=== PATIENT | female | born 1955 | race Caucasian/White ===

== ENCOUNTER 2018-03-18 08:33 | Inpatient (IN) | payer OTHER ==
[2018-03-18] MEDS ORDERED: BACITRACIN ZINC 14.2 GM OINTTUBE TP ONE (08:40)
[2018-03-18] MEDS ORDERED: MANNITOL 20% 100 GM/500 ML BAG IV ONE (08:40)
[2018-03-18] MEDS ORDERED: LIDOCAINE/EPINEPHRINE 0.5% 50 ML MDV ONE (08:40)
[2018-03-18] MEDS ORDERED: THROMBIN (BOVINE) 5,000 UNIT VIAL TP ONE (08:40)
[2018-03-18] MEDS ORDERED: SURGIFLO MATRIX KIT WITH THROMBIN 8 ML TP ONE (08:40)
[2018-03-18] MEDS ORDERED: LIDO/EPI 1% **for epidural** 30 ML SDV ONE (08:41)
[2018-03-18] MEDS ORDERED: LIDOCAINE 1% 2 ML INJ ID PRN (08:42)
[2018-03-18] MEDS ORDERED: LR 1,000 ML IV ONE (08:42)
[2018-03-18 09:54] LABS: INR 0.94 (0.83-1.16); PROTIME(PATIENT) 12.8 SEC (12.0-15.0)
[2018-03-18] MEDS ORDERED: IOPAMIDOL (ISOVUE-300) 100 ML BTL ONE (10:19)
[2018-03-18] MEDS ORDERED: MIDAZOLAM 2 MG/2 ML VIAL IVP ONE (10:26)
--- NOTE | 2018-03-18 10:31 | PDANEPAE ---
ANE History of Present Illness Craniotomy for tumor ANE Past Medical History - Cardiovascular History Hx Hypertension: Yes Hx Arrhythmias: No Hx Chest Pain: No Hx Coronary Artery / Peripheral Vascular Disease: No Hx CHF / Valvular Disease: No Hx Palpitations: No Cardiovascular History Comment: pcp monitors bp medications. + antiphospholipid syndrome - Pulmonary History Hx COPD: No Hx Asthma/Reactive Airway Disease: No Hx Recent Upper Respiratory Infection: No Hx Oxygen in Use at Home: No Hx Sleep Apnea: No Sleep Apnea Screening Result - Last Documented: Negative Pulmonary History Comment: + smoker - Neurologic History Hx Cerebrovascular Accident: Yes Hx Seizures: No Hx Dementia: No Neurologic History Comment: cva 2009. headaches - Endocrine History Hx Diabetes: No Hypothyroid: No Hyperthyroid: No Obesity: no - Renal History Hx Renal Disorders: No - Liver History Hx Hepatic Disorders: No - Neurological & Psychiatric Hx Hx Neurological and Psychiatric Disorders: No - Cancer History Hx Cancer: No - Congenital Disorder History Hx Congenital Disorders: No - GI History GERD: no Hx Gastrointestinal Disorders: No - Other Health History Other Health History: dental implants. right AKA d/t osteomyelitis - Chronic Pain History Chronic Pain: Yes (headaches, left knee pain) - Surgical History Prior Surgeries: left NIKITA. left hip revision. right AKA. hysterectomy. appy. left knee scopes. tonsillectomy ANE Review of Systems Review of Systems: - Exercise capacity Exercise capacity: limited by disability METS (RN): 4 METS ANE Patient History - Allergies Allergies/Adverse Reactions: tobramycin Allergy (Verified 03/12/18 12:12) Rash - Home Medications Home Medications: Aspirin EC [Aspirin EC 81 mg (*)] 81 mg PO DAILY 03/07/18 [Last Taken 03/09/18] Atorvastatin Calcium [Lipitor 10 mg (*)] 10 mg PO DAILY 03/07/18 [Last Taken ] Enoxaparin [Lovenox 60 MG (*)] 60 mg SQ DAILY 03/07/18 [Last Taken 03/17/18] Folic Acid [Folic Acid 1 MG (*)] 1 mg PO DAILY 03/07/18 [Last Taken 03/17/18] Hydrochlorothiazide [HCTZ (*)] 12.5 mg PO DAILY 03/07/18 [Last Taken 03/17/18] Potassium Cl [Klor-Con] 10 meq PO DAILY 03/07/18 [Last Taken 03/17/18] Warfarin Sodium [Coumadin 4MG (*)] 4.5 mg PO DAILY16 03/07/18 [Last Taken ] Zolpidem Tartrate [Ambien 5MG (*)] 5 mg PO HS 03/07/18 [Last Taken 03/17/18] celeCOXIB [CeleBREX] 100 mg PO DAILY 03/07/18 [Last Taken 03/09/18] - NPO status NPO Since - Liquids (Date): 03/17/18 NPO Since - Liquids (Time): 21:00 NPO Since - Solids (Date): 03/17/18 NPO Since - Solids (Time): 16:30 - Anes Hx Anes Hx: no prior problems - Smoking Hx Smoking Status: Heavy smoker - Family Anes Hx Family Hx Anesthesia Complications: none ANE Labs/Vital Signs - Vital Signs Blood Pressure: 137/84 Heart Rate: 100 Respiratory Rate: 16 O2 Sat (%): 92 Height: 168.91 cm Weight: 63.957 kg ANE Physical Exam - Airway Neck exam: FROM Mallampati Score: Class 2 Mouth exam: normal dental/mouth exam (dental implants) - Pulmonary Pulmonary: no respiratory distress - Cardiovascular Cardiovascular: regular rate and rhythym - ASA Status ASA Status: II ANE Anesthesia Plan Anesthesia Plan: general endotracheal anesthesia Lines/Monitors: arterial line (Plan for GETA with a-line. Discussed possible central line. Discussed possibility of remaining intubated post op if necessary.)
[2018-03-18] MEDS ORDERED: fentaNYL 250 MCG/5 ML INJ ONE (11:08)
[2018-03-18] MEDS ORDERED: PROPOFOL 200 MG/20 ML VIAL ONE (11:09)
[2018-03-18] MEDS ORDERED: LIDOCAINE 2% 5 ML SDV ONE (11:11)
[2018-03-18] MEDS ORDERED: DEXAMETHASONE 4 MG/ML VIAL ONE ×2 (11:12)
[2018-03-18] MEDS ORDERED: ROCURONIUM 50 MG/5 ML VIAL ONE ×2 (11:12→12:38)
[2018-03-18] MEDS ORDERED: ONDANSETRON 4 MG/2 ML VIAL ONE (11:12)
[2018-03-18] MEDS ORDERED: ceFAZolin 2 GM/DEXTROSE 100 ML IV ONE (11:14)
[2018-03-18] MEDS ORDERED: levETIRAcetam 1000MG/NACL 100 ML IV ONE (11:15)
--- NOTE | 2018-03-18 11:16 | PDHPUP ---
History & Physical Update H&P update statement: This history and physical update is based on an assessment of the patient which was completed after admission or registration (within 24 hours), but prior to the surgery/procedure. H&P update: H&P reviewed & patient examined, no change in patient's condition since H&P completed
[2018-03-18] MEDS ORDERED: ceFAZolin 1 GM VIAL ONE ×2 (11:18)
[2018-03-18] MEDS ORDERED: CHLORHEXIDINE GLUC HIBICLENS 118 ML BTL TP ONE (12:20)
[2018-03-18] MEDS ORDERED: ePHEDrine SULFATE 25 MG/5 ML SYR ONE (12:29)
[2018-03-18] MEDS ORDERED: METOPROLOL TARTRATE 5 MG/5 ML INJ ONE (13:20)
[2018-03-18] MEDS ORDERED: fentaNYL 100 MCG/2 ML INJ ONE ×2 (13:22→14:16)
[2018-03-18] MEDS ORDERED: ESMOLOL HCL 100 MG/10 ML VIAL IV ONE (13:23)
[2018-03-18] MEDS ORDERED: hydrALAZINE 20 MG/ML VIAL ONE (13:46)
[2018-03-18] MEDS ORDERED: GENTAMICIN SULFATE 80 MG/2 ML VIAL ONE (13:57)
[2018-03-18] MEDS ORDERED: SUGAMMADEX SODIUM 200 MG/2 ML VIAL IVP ONE (13:59)
--- NOTE | 2018-03-18 14:13 | POSTOPPROG ---
Post Op Note Date of Operation: 03/18/18 Surgeon: Leroy Cervantes Tag And Label Cutter: Wesley Garcia PA-C Anesthesia: GET(General Endotracheal) Pre-op Diagnosis: colloid cyst Post-op Diagnosis: same Indication: severe HAs Procedure: right frontal edgard hole for endscopic resection of colloid cyst Findings: cyst fenestrated and capsule removed, third ventricle visualized Inf/Abcess present in the surg proc area at time of surgery?: No Depth: Organ Space EBL: 50-100 Total fluids administered: per anesthesia Complications: none Drains: Other (EVD open at 0)
[2018-03-18] MEDS ORDERED: LACTULOSE 20 GM/30 ML UDCUP PO PRN (14:51)
[2018-03-18] MEDS ORDERED: ONDANSETRON DISINTEGRATING 4 MG TAB PO PRN (14:51)
[2018-03-18] MEDS ORDERED: MAGNESIUM HYDROXIDE 30 ML UDCUP PO PRN (14:51)
[2018-03-18] MEDS ORDERED: niCARdipine/NACL 200 ML IV PRN (14:51)
[2018-03-18] MEDS ORDERED: POLYETHYLENE GLYCOL 3350 17 GM PKT PO PRN (14:51)
[2018-03-18] MEDS ORDERED: BISACODYL 10 MG SUPP PR PRN (14:51)
[2018-03-18] MEDS ORDERED: diphenhydrAMINE 25 MG CAP PO PRN (14:51)
--- NOTE | 2018-03-18 15:41 | NEUSURGPN ---
Date of Surgery: 03/18/18 Post Op Day: 0 Assessment/Plan: 62F s/p edgard hole and endoscopic removal of colloid cyst. Pt with some post operative Intracranial bleeding in her right frontal lobe and brainstem and left sided UE weakness and facial droop. ADAT optimize pain management elder out likley in am, tonight if ready to get up and ambulate SBP 100-140 Keppra 750 BID EVD open at 5mmHg Repeat CTH in am PT/OT/SENIOR BUSINESS PROCESS ANALYST follow exam Call NS with any changes/concerns DW Dr. Cervantes Subjective: groggy post anesthesia, no complaint of pain. Objective: opens eyes to voice PEARLA follows commands left sided facial droop RUE full strength, RLE above knee amputee, LLE full strength, RUE plegic SILT incision CDI Ventric open at 5mmHg Urinary Catheter in Place: Yes Urinary Catheter Indication: Other (Use Comment) (out POD#1) - Physician Discussed Patient with Dr.: Cervantes Neurosurgery Physical Exam - Vitals, I&O, Labs I and O 03/17/18 03/18/18 03/19/18 05:59 05:59 05:59 Output Total 9 Balance -9 Weight 63.957 kg Output: CSF Drainage Amount 9 Ventriculostomy 1 9 Vital Signs Temp Pulse Resp BP Pulse Ox 36.6 C 86 19 112/51 L 95 03/18/18 14:48 03/18/18 15:34 03/18/18 15:34 03/18/18 15:34 03/18/18 15:34 ICD10 Worksheet Patient Problems: Problems Problem Status Onset Colloid cyst of third ventricle Acute - ICD10 Problem Qualifiers (1) Colloid cyst of third ventricle
--- NOTE | 2018-03-18 15:57 | PDMN ---
Medical Necessity Medical necessity: [facility] IP only surgery; CPT 60779 craniotomy
[2018-03-18] MEDS: NS W/ 20 KCl/L 1,000 ML IV SCH (16:18)
--- NOTE | 2018-03-18 16:31 | POSTANESTH ---
Post Anesthetic Evaluation Cardiovascular Status: Normal, Stable Respiratory Status: Normal, Stable Level of Consciousness/Mental Status: Can Participate in Eval, Mildly Sleepy, Arousable Pain Control: Adequate, Prn Tx Ordered Nausea/Vomiting Control: Adequate, Prn Tx Ordered Complications Possibly Related to Anesthesia: None Noted
[2018-03-18] MEDS: HYDROCODONE/APAP 10/325 TAB PO PRN (19:14)
[2018-03-18] MEDS: SENNOSIDES/DOCUSATE SODIUM TAB PO SCH (19:54)
[2018-03-18] MEDS: levETIRAcetam 250 MG TAB PO SCH (19:54)
[2018-03-19] MEDS: NS W/ 20 KCl/L 1,000 ML IV SCH ×3 (04:04→21:05)
--- NOTE | 2018-03-19 07:03 | NEUSURGPN ---
Date of Surgery: 03/18/18 Post Op Day: 1 Assessment/Plan: Assessment: 62 yo F s/p edgard hole and endoscopic removal of colloid cyst. Pt has some post operative Intracranial bleeding in her right frontal lobe and brainstem Plan: -s/p colloid cyst removal with post op blood that is slightly larger than post op CT -optimize pain management -elder out this am. Encourage ambulation -SBP 100-140 -Keppra 750 BID -EVD open at 5mmHg -repeat CTH this am showed slight increase in blood-exam good-will follow exam at this time -continue with neuro checks -PT/OT/BANDER AND CELLOPHANER MACHINE -call NS with any changes/concerns -DW and seen by Dr. Cervantes this am Subjective: No new complaints or concerns per RN/Pt. Pt with resolved weakness. Pt complains of GENTILE. No neck/chest/abd or gu complaints. No f/c/n/v/d. Objective: AAO x 3, PERRLA EOMI no droop CN 2-12 grossly intact +lt touch follows commands 5/5 BUE/BLE = incision CDI Ventric open at 5mmHg Neuro Check Frequency: per routine Urinary Catheter in Place: Yes Urinary Catheter Indication: Other (Use Comment) (to be removed this am) Catheter Insertion Date: 03/18/18 - Physician Discussed Patient with : Billy Patient Seen by : Billy Neurosurgery Physical Exam - Vitals, I&O, Labs I and O 03/18/18 03/19/18 03/20/18 05:59 05:59 05:59 Intake Total 529 Output Total 2270 Balance -1741 Weight 64.1 kg Intake: Oral (ml) 100 IV Infused (ml) 429 NS W/ 20 KCl/L 1,000 ml @ 429 100 mls/hr IV CONT FRANCINE Rx#:[id number] Output: Urine (ml) 2200 Catheter 2200 CSF Drainage Amount 70 Ventriculostomy 1 70 Vital Signs Temp Pulse Resp BP Pulse Ox 36.9 C 74 18 102/46 L 95 03/19/18 06:00 03/19/18 06:00 03/19/18 06:00 03/19/18 06:00 03/19/18 06:00 Laboratory Results 03/18/18 20:51 ICD10 Worksheet Patient Problems: Problems Problem Status Onset Colloid cyst of third ventricle Acute
[2018-03-19] MEDS: HYDROCODONE/APAP 10/325 TAB PO PRN ×2 (08:07→08:42)
[2018-03-19] MEDS: POTASSIUM CL 10 MEQ TAB PO SCH ×2 (08:44→10:16)
[2018-03-19] MEDS: SENNOSIDES/DOCUSATE SODIUM TAB PO SCH ×2 (08:44→19:12)
[2018-03-19] MEDS: FOLIC ACID 1 MG TAB PO SCH (08:44)
[2018-03-19] MEDS: ATORVASTATIN CALCIUM 10 MG TAB PO SCH (08:44)
[2018-03-19] MEDS: HYDROCHLOROTHIAZIDE 12.5 MG CAP PO SCH (08:44)
[2018-03-19] MEDS: levETIRAcetam 250 MG TAB PO SCH ×2 (08:44→19:11)
[2018-03-19] MEDS ORDERED: NS 500 ML IV ONE (09:30)
[2018-03-19] MEDS ORDERED: ALBUMIN 5% 500 ML BOTTLE IV ONE (09:45)
[2018-03-19] MEDS ORDERED: ALBUMIN 5% 500 ML IV ONE ×2 (10:00→11:02)
--- NOTE | 2018-03-19 11:29 | ASMTCASEMG ---
Living Arrangements What is your living Answers: Alone arrangement? Who do you live with? Type Of Residence What kind of residence do Answers: House you live in? Discharge Plan Comments Coordination Status Comments Notes: Patient is a 62yo female who was admitted for endoscopic removal of colloid cyst. Patient has some post operative intracranial bleeding in her right frontal lobe and brainstem. PT/OT/ENGINEERING EXECUTIVE have been ordered. Matrix Bath Attendant recommending inpatient rehab. Awaiting therapies evaluations.D/C plan TBD. CM will follow. Date Signed: 03/19/2018 11:28 AM Electronically Signed By:Tammy Barrow LCSW
[2018-03-19] MEDS ORDERED: ALTEPLASE 2 MG VIAL IVP PRN ×2 (14:16→14:39)
--- NOTE | 2018-03-19 15:17 | GCON ---
CRITICAL CARE CONSULTATION DATE OF CONSULTATION: 03/19/2018 REASON FOR CONSULTATION: Intensive care unit evaluation and medical management following endoscopic resection of a colloid cyst. HISTORY: The patient is a 62-year-old with several underlying medical problems as described below. She presented to Neurosurgery, Dr. Cervantes, with increasing headaches. They were associated with some lightheadedness, dizziness, and episodes of fainting. CT scan of the head showed a colloid cyst pre sent in the area of the foramina of Araceli in the anterior 3rd ventricle. Secondary to increasing hea daches, she was admitted for elective resection of the colloid cyst. This was done yesterday by Dr. Cervantes. A right frontal edgard hole was placed and endoscopic resection was accomplished. She was ret urned to the intensive care unit for postoperative monitoring. She has been stable since surgery. H owever, repeat CT scan of the head today showed some increased postop blood in the right periventricu lar area extending somewhat into the right temporal lobe. A catheter remains in place. Neurological ly she is intact. She does still complain of headache. She is somnolent, presumably secondary to na rcotics. She is on Keppra. EVD is open at 5 mmHg. Postoperatively, blood pressure has been low, with mean arterial pressures in the 50s. She did not r espond to increased IV fluids or to 1 L of albumin. She states that her blood pressure generally run s in the low 100s. PAST MEDICAL HISTORY: Remarkable for antiphospholipid syndrome. She has been anticoagulated with Co umadin, heparin bridge was used prior to surgery. There is a history of a right AKA secondary to ost eomyelitis and a previous CVA. She smokes cigarettes. MEDICATIONS ON ADMISSION: Coumadin, which was being held, Ambien 5 mg at h.s., aspirin 81 mg per day , potassium and hydrochlorothiazide, Celebrex, atorvastatin, and folic acid. DRUG ALLERGIES: Tobramycin. SOCIAL HISTORY: Positive for tobacco. Significant alcohol is negative by report. FAMILY HISTORY: Noncontributory. REVIEW OF SYSTEMS: A 10-point review of systems is negative, except as noted above. PHYSICAL EXAMINATION: GENERAL: Reveals a somnolent patient who is arousable and appropriately respo nsive. VITAL SIGNS: Current blood pressure on low-dose dopamine is 105/50 with a mean arterial pres sure of 62. Heart rate is 70, with sinus rhythm on the monitor. Respiratory rate is 16. On 2 L sat urations are 97%. ICP is 7, CPP approximately 50. HEENT: Remarkable for the postoperative changes. Mucous membranes are somewhat dry. Nasal cannula oxygen is in place. There is no lymphadenopathy or thyromegaly, no jugular venous distention. CHEST: Clear bilaterally, with diminished breath soun ds at the bases. HEART: Bradycardic. A soft systolic murmur is noted. There are no gallops. ABDO MEN: Soft and nontender. Bowel sounds are present but diminished. EXTREMITIES: There is a right A KA. There is no edema on the left. NEUROLOGIC: Nonfocal, within normal limits. : A Vance tavon ter has been removed. DATABASE: CT scans are as outlined above. Preop H and H were 12 and 36. ASSESSMENT: 1. Status post endoscopic resection of a colloid cyst with some associated bleeding. 2. Hypotension. Blood pressure remains low despite fluids. This may in part be secondary to narcot ic pain control for headache. Dopamine has been added with increased pressures and a MAP between 16 and 65. A PICC line will be requested. 3. History of antiphospholipid syndrome and anticoagulation. Currently off anticoagulation. Restar ting once acceptable with Neurosurgery. 4. History of [id number] amputation secondary to osteomyelitis. PLAN/RECOMMENDATIONS: Dopamine will be continued for now to keep MAP above 60-65. A PICC line will be requested. Chemistries and CBC will be obtained in the a.m. Neurologic status will be followed. Repeat CT scans of the head, if any, per Neurosurgery. Intravenous fluids will be continued. Further plans and recommendations will be made based on her progress over the next 12-24 hours. /[id number]/MODL
[2018-03-19] MEDS ORDERED: ONDANSETRON 4 MG/2 ML VIAL ONE (15:28)
[2018-03-19] MEDS ORDERED: ONDANSETRON 4 MG/2 ML VIAL IVP PRN (16:18)
[2018-03-19] MEDS ORDERED: ACETAMINOPHEN 500 MG TAB PO PRN (18:46)
[2018-03-19] MEDS: ACETAMINOPHEN 500 MG TAB PO PRN (19:11)
[2018-03-20] MEDS: HYDROCODONE/APAP 10/325 TAB PO PRN ×3 (01:40→18:14)
[2018-03-20] MEDS: NS W/ 20 KCl/L 1,000 ML IV SCH ×4 (04:16→23:08)
[2018-03-20 04:34] LABS: PLATELET COUNT 156 10^3/uL (150-400)
--- NOTE | 2018-03-20 07:03 | NEUSURGPN ---
Assessment/Plan: Assessment: 62 yo F s/p edgard hole and endoscopic removal of colloid cyst. Pt had some post operative Intracranial bleeding in her right frontal lobe and brainstem Plan: -s/p colloid cyst removal with post op blood that is slightly larger than post op CT -optimize pain management -Encourage ambulation -SBP 100-140 -Keppra 750 BID -EVD open at 5mmHg -repeat CTH 03/19 showed slight increase in blood-exam good-will follow exam at this time -continue with neuro checks -PT/OT/MANAGER MEDICAL -call NS with any changes/concerns -DW Dr. Cervantes Subjective: mild headache and nausea. Denies any change in vision. Objective: Subjective: AAO x 3, PERRLA EOMI no droop CN 2-12 grossly intact +lt touch follows commands 5/5 BUE/BLE = incision CDI ICP 7-8 this am CSF clear to blood tinged Ventric open at 5mmHg Catheter Insertion Date: 03/18/18 - Physician Discussed Patient with Dr.: Cervantes Neurosurgery Physical Exam - Vitals, I&O, Labs I and O 03/19/18 03/20/18 03/21/18 05:59 05:59 05:59 Intake Total 529 4684.3 Output Total 2270 2635 Balance -1741 2049.3 Weight 64.1 kg Intake: Oral (ml) 100 950 IV Infused (ml) 429 3734.3 Albumin 5% 500 ml @ As 1000 Directed IV ONCE ONE Rx#: [id number] DOPamine/DEXTROSE 250 ml 214.3 @ Titrate IV CONT FRANCINE Rx# :[id number] NS W/ 20 KCl/L 1,000 ml @ 429 2520 150 mls/hr IV CONT FRANCINE Rx#:[id number] Output: Urine (ml) 2200 2500 Bedside Commode 2150 Catheter 2200 350 Emesis (ml) 25 CSF Drainage Amount 70 110 Ventriculostomy 1 70 110 Other: Number of Emesis 1 Occurrences Vital Signs Temp Pulse Resp BP Pulse Ox 36.7 C 49 L 13 114/43 L 97 03/20/18 04:00 03/20/18 05:59 03/20/18 05:59 03/20/18 05:59 03/20/18 05:59 Laboratory Results 03/20/18 04:25 03/20/18 04:25 ICD10 Worksheet Patient Problems: Problems Problem Status Onset Colloid cyst of third ventricle Acute
[2018-03-20] MEDS: POTASSIUM CL 10 MEQ TAB PO SCH (08:59)
[2018-03-20] MEDS: ATORVASTATIN CALCIUM 10 MG TAB PO SCH (08:59)
[2018-03-20] MEDS: levETIRAcetam 250 MG TAB PO SCH ×2 (08:59→20:20)
[2018-03-20] MEDS: SENNOSIDES/DOCUSATE SODIUM TAB PO SCH ×2 (08:59→20:20)
[2018-03-20] MEDS: FOLIC ACID 1 MG TAB PO SCH (08:59)
[2018-03-20] MEDS: HYDROCHLOROTHIAZIDE 12.5 MG CAP PO SCH (09:14)
--- NOTE | 2018-03-20 13:16 | PDINTPN ---
Capping Machine Operator Progress Note Assessment/Plan: Assessment: Status post colloid cyst removal. Associated with a small amount of postop intraparenchymal hemorrhage. Headaches improved. Ventriculostomy in place. On Keppra. Neurologic status is stable. History of anti phospholipid syndrome. History of DVT left lower extremity. On Coumadin prior to admission. Need to restart prophylactic anticoagulation as soon as possible, followed by full-dose anticoagulation once okay with surgery. Hypotension. Blood pressures borderline low. On low-dose dopamine at 5. History a right AKA secondary to osteomyelitis. Metabolic: No issues identified. Anemia: Hematocrit 33. No evidence of active bleeding. Follow. Plan: Continue care in the intensive care unit. Continue neuro checks. Continue dopamine: Wean as blood pressure tolerates.. Follow CBC and laboratory. Restart prophylactic anticoagulation as soon as possible: I will discuss this with neuro surgery. Full-dose anticoagulation later. I will get a surveillance/baseline ultrasound of her left lower extremity: I do not suspect any acute clot. 35 min of critical care time spent directly with the patient. Discussed with neuro surgery, nursing, and the ICU multi disciplinary team. Subjective: Remains somnolent. Headache is better. Denies shortness of breath. Objective: Vital Signs Temp Pulse Resp BP Pulse Ox 36.6 C 55 L 14 105/46 L 94 03/20/18 12:00 03/20/18 13:00 03/20/18 13:00 03/20/18 13:00 03/20/18 13:00 Laboratory Results 03/20/18 04:25 03/20/18 04:25 03/19/18 03/20/18 03/21/18 05:59 05:59 05:59 Intake Total 529 4684.3 180 Output Total 2270 2635 761 Balance -1741 2049.3 -581 PT 12.8 SEC (12.0-15.0) 03/18/18 09:30 INR 0.94 (0.83-1.16) 03/18/18 09:30 Physical Exam - Physical Exam General Appearance: other (Remains somnolent but improved compared to yesterday , arousable, responds.) EENT: PERRL/EOMI, other (Ventriculostomy in place. Nasal cannula.) Neck: normal inspection (No JVD) Respiratory: lungs clear, decreased breath sounds (And excursions at bases) Cardiac/Chest: bradycardia (Sinus) Abdomen: normal bowel sounds, non-tender, soft Pelvic Exam: other (No Vance catheter) Skin: normal color, warm/dry Extremities: pedal edema, other (Right AKA) Neuro/Psych: no motor/sensory deficits (Moves all extremities), No cognition abnormalities (Somnolent) ICD10 Worksheet Patient Problems: Problems Problem Status Onset Colloid cyst of third ventricle Acute
[2018-03-20] MEDS: oxyCODONE IR 5 MG TAB PO PRN (15:32)
[2018-03-21] MEDS: oxyCODONE IR 5 MG TAB PO PRN ×3 (01:35→20:02)
[2018-03-21 04:38] LABS: PLATELET COUNT 152 10^3/uL (150-400)
--- NOTE | 2018-03-21 08:40 | NEUSURGPN ---
Assessment/Plan: Assessment: 62 yo F s/p edgard hole and endoscopic removal of colloid cyst. Pt had some post operative Intracranial bleeding in her right frontal lobe and brainstem Plan: -s/p colloid cyst removal with post op blood that is slightly larger than post op CT -optimize pain management -Encourage ambulation -SBP 100-140 -Keppra 750 BID -EVD open at 15mmHg -repeat CTH 03/19 showed slight increase in blood-exam good-will follow exam at this time -continue with neuro checks -PT/OT/TRACK HOE OPERATOR -call NS with any changes/concerns -Will start heparin 8000mg bid, will need to hold 24hour prior to evd pull Subjective: Mild headache, feeling a bit more fatigued this morning Objective: AAO x 3, PERRLA EOMI no droop CN 2-12 grossly intact +lt touch follows commands 5/5 BUE/BLE = incision CDI CSF clear to blood tinged Ventric open at 10mmHg Catheter Insertion Date: 03/18/18 - Physician Discussed Patient with : John Neurosurgery Physical Exam - Vitals, I&O, Labs I and O 03/20/18 03/21/18 03/22/18 05:59 05:59 05:59 Intake Total 4684.3 5581 Output Total 2635 2620 501 Balance 2049.3 2961 -501 Intake: Oral (ml) 950 1786 IV Infused (ml) 3734.3 3795 Albumin 5% 500 ml @ As 1000 Directed IV ONCE ONE Rx#: [id number] DOPamine/DEXTROSE 250 ml 214.3 271 @ Titrate IV CONT FRANCINE Rx# :[id number] NS W/ 20 KCl/L 1,000 ml @ 2520 3524 150 mls/hr IV CONT FRANCINE Rx#:[id number] Output: Urine (ml) 2500 2600 500 Bedside Commode 2150 2600 500 Catheter 350 Emesis (ml) 25 CSF Drainage Amount 110 20 1 Ventriculostomy 1 110 20 1 Other: Number of Voids Bedside Commode 1 1 Number of Emesis 1 Occurrences Vital Signs Temp Pulse Resp BP Pulse Ox 36.5 C 61 14 114/50 L 92 03/20/18 23:58 03/21/18 06:00 03/21/18 06:00 03/21/18 06:00 03/21/18 06:00 Laboratory Results 03/21/18 04:30 03/21/18 04:30 ICD10 Worksheet Patient Problems: Problems Problem Status Onset Colloid cyst of third ventricle Acute
[2018-03-21] MEDS: levETIRAcetam 250 MG TAB PO SCH ×2 (09:41→20:02)
[2018-03-21] MEDS: ATORVASTATIN CALCIUM 10 MG TAB PO SCH (09:41)
[2018-03-21] MEDS: SENNOSIDES/DOCUSATE SODIUM TAB PO SCH ×2 (09:41→20:01)
[2018-03-21] MEDS: POTASSIUM CL 10 MEQ TAB PO SCH (09:42)
[2018-03-21] MEDS: FOLIC ACID 1 MG TAB PO SCH (09:42)
[2018-03-21] MEDS: HYDROCHLOROTHIAZIDE 12.5 MG CAP PO SCH (09:42)
[2018-03-21] MEDS ORDERED: ALBUMIN 5% 500 ML IV ONE (10:33)
[2018-03-21] MEDS: HYDROCODONE/APAP 10/325 TAB PO PRN (15:36)
--- NOTE | 2018-03-21 15:55 | PDINTPN ---
Associate Curator Progress Note Assessment/Plan: Assessment: Status post colloid cyst removal. Associated with a small amount of postop intraparenchymal hemorrhage. Headaches improved but do persist. Ventriculostomy in place. On Keppra. Neurologic status is stable. History of anti phospholipid syndrome. History of DVT left lower extremity. On Coumadin prior to admission. Prophylactic subcu heparin started. Hypotension. Blood pressures borderline low. On low-dose dopamine at 5 to 10 as needed to keep MAP 60-65. History a right AKA secondary to osteomyelitis. Metabolic: No issues identified. Anemia: Hematocrit 33, stable. No evidence of active bleeding. Follow. Plan: Continue care in the intensive care unit. Continue neuro checks. Continue dopamine: Wean as blood pressure tolerates.. Follow CBC and laboratory. Agree with initiation of prophylactic anticoagulation Full-dose anticoagulation later. 25 min of critical care time spent directly with the patient. Discussed with neuro surgery, nursing, and the ICU multi disciplinary team. Subjective: Somnolent, arousable, complains a headache but feels pain control is acceptable Objective: Vital Signs Temp Pulse Resp BP Pulse Ox 36.8 C 76 17 112/55 L 93 03/21/18 12:00 03/21/18 15:00 03/21/18 15:00 03/21/18 15:00 03/21/18 15:00 Laboratory Results 03/21/18 04:30 03/21/18 04:30 03/20/18 03/21/18 03/22/18 05:59 05:59 05:59 Intake Total 4684.3 5581 Output Total 2635 2620 861 Balance 2049.3 2961 -861 PT 12.8 SEC (12.0-15.0) 03/18/18 09:30 INR 0.94 (0.83-1.16) 03/18/18 09:30 Surveillance ultrasound right lower extremity: No clot. No significant residual abnormalities from previous DVT. Physical Exam - Physical Exam General Appearance: other (Somnolent, arouses) EENT: PERRL/EOMI, other (Nasal cannula in place at [address]) Neck: normal inspection (No JVD) Respiratory: lungs clear, decreased breath sounds (At bases), No rales, No rhonchi Cardiac/Chest: regular rate, rhythm Abdomen: normal bowel sounds, non-tender, soft Pelvic Exam: other (No Vance catheter) Skin: normal color, warm/dry Extremities: other (Right AKA), No pedal edema Neuro/Psych: no motor/sensory deficits, cognition abnormalities (Remains somnolent) ICD10 Worksheet Patient Problems: Problems Problem Status Onset Colloid cyst of third ventricle Acute
--- NOTE | 2018-03-21 16:29 | ASMTCMCOM ---
CM Note CM Note Notes: Patient was confused this AM. Her friend Loren has been at her bedside. Patient was requiring 2 person max assist today. Inpatient rehab consult was requested. D/C plan TBD.CM will follow. Date Signed: 03/21/2018 04:28 PM Electronically Signed By:Tammy Barrow LCSW
[2018-03-21] MEDS: HEPARIN 5,000 UNIT/0.5 ML INJ SC SCH (20:02)
[2018-03-21] MEDS: NS W/ 20 KCl/L 1,000 ML IV SCH (21:38)
[2018-03-22] MEDS: SENNOSIDES/DOCUSATE SODIUM TAB PO SCH ×2 (08:18→20:33)
[2018-03-22] MEDS: FOLIC ACID 1 MG TAB PO SCH (08:18)
[2018-03-22] MEDS: ATORVASTATIN CALCIUM 10 MG TAB PO SCH (08:19)
[2018-03-22] MEDS: levETIRAcetam 250 MG TAB PO SCH ×2 (08:20→20:33)
[2018-03-22] MEDS: POTASSIUM CL 10 MEQ TAB PO SCH (08:21)
[2018-03-22] MEDS: HEPARIN 5,000 UNIT/0.5 ML INJ SC SCH ×2 (08:25→20:33)
--- NOTE | 2018-03-22 08:58 | NEUSURGPN ---
Assessment/Plan: Assessment: 62 yo F s/p edgard hole and endoscopic removal of colloid cyst on . Pt had some post operative Intracranial bleeding in her right frontal lobe and brainstem Plan: -s/p colloid cyst removal with post op blood -Encourage ambulation -SBP 100-140 -Keppra 750 BID -repeat CTH decreased in overall blood volume and improved ventriculomegaly with some slight increase in shift. Reviewed with Dr. Lopez. Will increased EVD to 10mmHG -continue with neuro checks -PT/OT/IMAGER -call NS with any changes/concerns -Will start heparin 8000mg bid, will need to hold 24hour prior to evd pull Subjective: mild headache Objective: AAO x 3, PERRLA EOMI no droop CN 2-12 grossly intact +lt touch follows commands 5/5 BUE/BLE = incision CDI CSF clear Ventric open at 5mmHg, ICP 2 Catheter Insertion Date: 03/18/18 - Physician Discussed Patient with : John Neurosurgery Physical Exam - Vitals, I&O, Labs I and O 03/21/18 03/22/18 03/23/18 05:59 05:59 05:59 Intake Total 5581 5281 1000 Output Total 2620 5361 450 Balance 2961 -80 550 Intake: Oral (ml) 1786 1760 1000 IV Intake (ml) 57 IV Infused (ml) 3795 3464 Albumin 5% 500 ml @ As 500 Directed IV ONCE ONE Rx#: [id number] DOPamine/DEXTROSE 250 ml 271 152 @ Titrate IV CONT FRANCINE Rx# :[id number] NS W/ 20 KCl/L 1,000 ml @ 3524 2812 150 mls/hr IV CONT FRANCINE Rx#:[id number] Output: Urine (ml) 2600 5275 450 Bedside Commode 2600 5275 450 CSF Drainage Amount 20 86 0 Ventriculostomy 1 20 86 0 Other: Intake Quantity Yes Sufficient Number of Voids Bedside Commode 1 1 Vital Signs Temp Pulse Resp BP Pulse Ox 36.6 C 58 L 17 111/61 97 03/22/18 07:00 03/22/18 08:00 03/22/18 08:00 03/22/18 08:00 03/22/18 08:00 Laboratory Results 03/21/18 04:30 03/21/18 04:30 ICD10 Worksheet Patient Problems: Problems Problem Status Onset Colloid cyst of third ventricle Acute
[2018-03-22] MEDS: oxyCODONE IR 5 MG TAB PO PRN (10:01)
[2018-03-22] MEDS: HYDROCHLOROTHIAZIDE 12.5 MG CAP PO SCH (10:26)
--- NOTE | 2018-03-22 14:44 | ASMTCMCOM ---
CM Note CM Note Notes: Pts case discussed in tx rounds. Pt would like a referral sent to [facility] for their inpatient rehab. Pt has been in the past and had a good experience. Referral sent. CM to follow. Plan: Inpatient Rehab Date Signed: 03/22/2018 02:43 PM Electronically Signed By:ARISTIDES Martinez
[2018-03-22] MEDS: ACETAMINOPHEN 500 MG TAB PO PRN (16:15)
--- NOTE | 2018-03-22 17:15 | PDINTPN ---
Bilingual Social Worker Progress Note Assessment/Plan: Assessment: Status post colloid cyst removal. Associated with a small amount of postop intraparenchymal hemorrhage. Headaches improved but do persist. Ventriculostomy in place. On Keppra. Neurologic status is stable. Somnolence. Likely secondary to pain medications. Some increased pressures/ hydrocephalus may be contributing as well. History of anti phospholipid syndrome. History of DVT left lower extremity. On Coumadin prior to admission. Prophylactic subcu heparin started. Hypotension. Blood pressures borderline low. Was off dopamine but back on this again. History a right AKA secondary to osteomyelitis. Metabolic: No issues identified. Anemia: Hematocrit 32.7, stable. No evidence of active bleeding. Follow. Plan: Continue care in the intensive care unit. Continue neuro checks. Continue dopamine as needed: Wean again as blood pressure tolerates. Follow CBC and laboratory. Decreased narcotics as tolerated. Continue prophylactic anticoagulation Full-dose anticoagulation later. 20 min of critical care time spent directly with the patient. Discussed with neuro surgery, nursing, and the ICU multi disciplinary team. Subjective: Complains of headache, remains somnolent. Objective: Vital Signs Temp Pulse Resp BP Pulse Ox 36.9 C 67 18 100/57 L 92 03/22/18 14:00 03/22/18 17:00 03/22/18 17:00 03/22/18 17:00 03/22/18 17:00 Laboratory Results 03/21/18 04:30 03/21/18 04:30 03/21/18 03/22/18 03/23/18 05:59 05:59 05:59 Intake Total 5581 5781 1355 Output Total 2620 5361 1850 Balance 2961 420 -495 PT 12.8 SEC (12.0-15.0) 03/18/18 09:30 INR 0.94 (0.83-1.16) 03/18/18 09:[address]: About the same regarding hemorrhages. Right lateral ventricle may be slightly larger Physical Exam - Physical Exam General Appearance: other (Less somnolent) EENT: PERRL/EOMI, other (Ventriculostomy in place) Neck: normal inspection Respiratory: lungs clear, decreased breath sounds (At bases) Cardiac/Chest: regular rate, rhythm Abdomen: normal bowel sounds, non-tender, soft Pelvic Exam: other (No Vance catheter. Using toilet, good urine output) Skin: normal color, warm/dry Extremities: other (AKA), No pedal edema Neuro/Psych: no motor/sensory deficits, cognition abnormalities (Remains somnolent, but less so) ICD10 Worksheet Patient Problems: Problems Problem Status Onset Colloid cyst of third ventricle Acute
[2018-03-23] MEDS: ACETAMINOPHEN 500 MG TAB PO PRN ×3 (06:19→23:27)
[2018-03-23] MEDS: levETIRAcetam 250 MG TAB PO SCH ×2 (08:17→21:03)
[2018-03-23] MEDS: SENNOSIDES/DOCUSATE SODIUM TAB PO SCH ×2 (08:18→21:03)
[2018-03-23] MEDS: HEPARIN 5,000 UNIT/0.5 ML INJ SC SCH ×2 (08:18→21:03)
[2018-03-23] MEDS: FOLIC ACID 1 MG TAB PO SCH (08:18)
[2018-03-23] MEDS: POTASSIUM CL 10 MEQ TAB PO SCH (08:18)
[2018-03-23] MEDS: ATORVASTATIN CALCIUM 10 MG TAB PO SCH (08:18)
--- NOTE | 2018-03-23 11:52 | NEUSURGPN ---
Assessment/Plan: Assessment: 62 yo F s/p edgard hole and endoscopic removal of colloid cyst on . Pt had some post operative Intracranial bleeding in her right frontal lobe and brainstem Plan: -s/p colloid cyst removal with post op blood -Encourage ambulation -SBP 100-140 -Keppra 750 BID -repeat CTH decreased in overall blood volume and improved ventriculomegaly with some slight increase in shift. Reviewed with Dr. Lopez. Will increased EVD to 15mmHG -Avoid narcotics -continue with neuro checks -PT/OT/RESIDENTIAL ADVISOR -call NS with any changes/concerns -Will start heparin 8000mg bid, will need to hold 24hour prior to evd pull Subjective: headaches stable Objective: AAO x 3, PERRLA EOMI no droop CN 2-12 grossly intact +lt touch follows commands 5/5 BUE/BLE = incision CDI CSF clear Ventric open at 10mmHg, ICP 1 Catheter Insertion Date: 03/18/18 - Physician Discussed Patient with : John Neurosurgery Physical Exam - Vitals, I&O, Labs I and O 03/22/18 03/23/18 03/24/18 05:59 05:59 05:59 Intake Total 5781 2343.6 720 Output Total 5361 5803 650 Balance 420 -3459.4 70 Intake: Oral (ml) 2260 2105 720 IV Intake (ml) 57 IV Infused (ml) 3464 238.6 Albumin 5% 500 ml @ As 500 Directed IV ONCE ONE Rx#: [id number] DOPamine/DEXTROSE 250 ml 152 238.6 @ Titrate IV CONT FRANCINE Rx# :[id number] NS W/ 20 KCl/L 1,000 ml @ 2812 150 mls/hr IV CONT FRANCINE Rx#:[id number] Output: Urine (ml) 5275 5800 650 Bedside Commode 5275 5800 650 CSF Drainage Amount 86 3 0 Ventriculostomy 1 86 3 0 Other: Intake Quantity Yes Sufficient Number of Voids Bedside Commode 1 1 Number of Stools Bedside Commode 0 1 Vital Signs Temp Pulse Resp BP Pulse Ox 37 C 54 L 20 110/46 L 93 03/23/18 08:00 03/23/18 11:00 03/23/18 11:00 03/23/18 11:00 03/23/18 11:00 Laboratory Results 03/21/18 04:30 03/21/18 04:30 ICD10 Worksheet Patient Problems: Problems Problem Status Onset Colloid cyst of third ventricle Acute
--- NOTE | 2018-03-23 13:36 | PDINTPN ---
Diamond Die Maker Progress Note Assessment/Plan: Assessment: Status post colloid cyst removal. Associated with a small amount of postop intraparenchymal hemorrhage. Headaches improved but do persist. Ventriculostomy in place. On Keppra. Neurologic status is stable. Somnolence. Significantly improved today Likely secondary to pain medications. Some increased pressures/hydrocephalus may be contributing as well? History of anti phospholipid syndrome. History of DVT left lower extremity. On Coumadin prior to admission. On prophylactic subcu heparin. Hypotension. Blood pressures borderline low. Was off dopamine but back on this again. Getting IV fluids. History a right AKA secondary to osteomyelitis. Metabolic: No issues identified. Anemia: Last hematocrit 32.7, stable. No evidence of active bleeding. Follow. Plan: Continue care in the intensive care unit. Continue neuro checks. Continue dopamine as needed: Wean again as blood pressure tolerates. Follow CBC and laboratory intermittently. Continue off narcotics unless needed. Continue prophylactic anticoagulation. Resume full-dose anticoagulation later once okay with neuro surgery. 25 min of critical care time spent directly with the patient. Discussed with neuro surgery, nursing, and the ICU multi disciplinary team. Subjective: Much more alert, brighter today. Interactive. Walked part way down the diaz using walker with physical therapy. Objective: Vital Signs Temp Pulse Resp BP Pulse Ox 37 C 54 L 20 110/46 L 93 03/23/18 08:00 03/23/18 11:00 03/23/18 11:00 03/23/18 11:00 03/23/18 11:00 Laboratory Results 03/21/18 04:30 03/21/18 04:30 03/22/18 03/23/18 03/24/18 05:59 05:59 05:59 Intake Total 5781 2343.6 720 Output Total 5361 5803 650 Balance 420 -3459.4 70 PT 12.8 SEC (12.0-15.0) 03/18/18 09:30 INR 0.94 (0.83-1.16) 03/18/18 09:30 Physical Exam - Physical Exam General Appearance: alert, no apparent distress, other (Sitting up in bed) EENT: PERRL/EOMI, other (Off oxygen. Ventriculostomy in place.) Neck: normal inspection (No JVD) Respiratory: lungs clear, normal breath sounds, No rales, No rhonchi Cardiac/Chest: bradycardia (Sinus) Abdomen: normal bowel sounds, non-tender, soft Skin: normal color, warm/dry Extremities: other (Right AKA), No pedal edema Neuro/Psych: no motor/sensory deficits, No cognition abnormalities ICD10 Worksheet Patient Problems: Problems Problem Status Onset Colloid cyst of third ventricle Acute
[2018-03-23] MEDS: NS W/ 20 KCl/L 1,000 ML IV SCH ×2 (13:37→22:11)
[2018-03-23] MEDS: traMADol 50 MG TAB PO PRN (18:41)
[2018-03-24] MEDS: traMADol 50 MG TAB PO PRN ×3 (01:34→21:21)
[2018-03-24 04:35] LABS: PLATELET COUNT 172 10^3/uL (150-400)
[2018-03-24] MEDS: NS W/ 20 KCl/L 1,000 ML IV SCH (05:42)
[2018-03-24] MEDS: ATORVASTATIN CALCIUM 10 MG TAB PO SCH (07:39)
[2018-03-24] MEDS: HEPARIN 5,000 UNIT/0.5 ML INJ SC SCH ×2 (07:39→20:58)
[2018-03-24] MEDS: SENNOSIDES/DOCUSATE SODIUM TAB PO SCH ×2 (07:39→20:58)
[2018-03-24] MEDS: FOLIC ACID 1 MG TAB PO SCH (07:39)
[2018-03-24] MEDS: levETIRAcetam 250 MG TAB PO SCH ×2 (07:40→20:58)
[2018-03-24] MEDS: ACETAMINOPHEN 500 MG TAB PO PRN ×2 (07:40→15:19)
[2018-03-24] MEDS: POTASSIUM CL 10 MEQ TAB PO SCH (07:40)
--- NOTE | 2018-03-24 09:05 | PDINTPN ---
Life Assurance Representative Progress Note Assessment/Plan: Assessment/plan: * Status post colloid cyst removal. Associated with a small amount of postop intraparenchymal hemorrhage. Headaches improved but do persist. Ventriculostomy in place. On Keppra. Neurologic status is stable. -anticipated tube clamping tomorrow * Somnolence. Markedly improved. Awake and alert. * Hypercoagulable state/anti phospholipid syndrome. History of DVT left lower extremity. On Coumadin prior to admission. On prophylactic subcu heparin. -query when full anticoagulation can begin * Hypotension. Blood pressures borderline low. Was off dopamine but back on this again. Getting IV fluids. * History a right AKA secondary to osteomyelitis. * Metabolic: No issues identified. * Anemia: Last hematocrit 32.7, stable. No evidence of active bleeding. Follow. * VTE prophylaxis. * Stress ulcer prophylaxis * Nutrition-adequate Overall markedly improved Subjective: Sitting up in bed. Awake and alert. Only complaint is a headache. Eating well. PT and OT working with patient. Objective: Vital Signs Temp Pulse Resp BP Pulse Ox 36.8 C 61 17 108/53 L 94 03/24/18 07:55 03/24/18 07:55 03/24/18 07:55 03/24/18 07:55 03/24/18 07:55 Laboratory Results 03/24/18 04:10 03/24/18 04:10 03/23/18 03/24/18 03/25/18 05:59 05:59 05:59 Intake Total 2343.6 4555 810 Output Total 5803 3100 0 Balance -3459.4 1455 810 PT 12.8 SEC (12.0-15.0) 03/18/18 09:30 INR 0.94 (0.83-1.16) 03/18/18 09:30 - Time Spent With Patient Time Spent With Patient: 35 min of time spent with patient, over 1/2 involved with coordination of care or counseling. Case discussed with nursing Physical Exam - Physical Exam General Appearance: WD/WN, alert, no apparent distress EENT: PERRL/EOMI Neck: non-tender, full range of motion, supple, normal inspection Respiratory: chest non-tender, lungs clear, normal breath sounds Cardiac/Chest: normal peripheral pulses, regular rate, rhythm Peripheral Pulses: 2+: carotid (R), carotid (L), femoral (R), femoral (L), dorsalis-pedis (R), dorsalis-pedis (L) Abdomen: normal bowel sounds, non-tender, soft Pelvic Exam: deferred Rectal: deferred Skin: normal color, warm/dry Extremities: normal range of motion, non-tender, normal inspection, normal capillary refill Neuro/Psych: alert, oriented x 3 ICD10 Worksheet Patient Problems: Problems Problem Status Onset Colloid cyst of third ventricle Acute
--- NOTE | 2018-03-24 09:27 | NEUSURGPN ---
Assessment/Plan: Assessment: 62 yo F s/p edgard hole and endoscopic removal of colloid cyst on . Pt had some post operative Intracranial bleeding in her right frontal lobe and brainstem Plan: -Encourage ambulation -SBP 100-140 -Keppra 750 BID -repeat CTH decreased in overall blood volume and improved ventriculomegaly with some slight increase in shift, patient improving clinically Will increased EVD to 20mmHG -Plan to clamp EVD tomorrow and hold Heparin for possible removal on Sat. Will repeat HCT on Sat morning prior to remove ventriculostomy -Avoid narcotics as this has been effecting patient overall mental status. Tramadol and Tylenol available for pain. -continue with neuro checks -PT/OT/MAINTENANCE SHOP TECHNICIAN -call NS with any changes/concerns Subjective: Continued stable headache Objective: AO x 3, PERRLA EOMI CN 2-12 grossly intact +lt touch follows commands 5/5 BUE/BLE = incision CDI CSF clear Ventric open at 10mmHg, ICP 1-3 Catheter Insertion Date: 03/18/18 - Physician Discussed Patient with : Billy Neurosurgery Physical Exam - Vitals, I&O, Labs I and O 03/23/18 03/24/18 03/25/18 05:59 05:59 05:59 Intake Total 2343.6 4555 1050 Output Total 5803 3100 650 Balance -3459.4 1455 400 Weight 68.8 kg Intake: Oral (ml) 2105 2560 720 IV Infused (ml) 238.6 1995 330 DOPamine/DEXTROSE 250 ml 238.6 68 @ Titrate IV CONT FRANCINE Rx# :[id number] NS W/ 20 KCl/L 1,000 ml @ 1927 330 100 mls/hr IV CONT FRANCINE Rx#:[id number] Output: Urine (ml) 5800 3100 650 Bedside Commode 5800 3100 650 CSF Drainage Amount 3 0 0 Ventriculostomy 1 3 0 0 Other: Intake Quantity Yes Sufficient Number of Voids Bedside Commode 1 1 Number of Stools Bedside Commode 0 0 Vital Signs Temp Pulse Resp BP Pulse Ox 36.8 C 61 17 108/53 L 94 03/24/18 07:55 03/24/18 07:55 03/24/18 07:55 03/24/18 07:55 03/24/18 07:55 Laboratory Results 03/24/18 04:10 03/24/18 04:10 ICD10 Worksheet Patient Problems: Problems Problem Status Onset Colloid cyst of third ventricle Acute
--- NOTE | 2018-03-24 16:46 | ASMTCMCOM ---
CM Note CM Note Notes: Updated referral notes to [facility]. Date Signed: 03/24/2018 04:45 PM Electronically Signed By:Jackie Martinez LCSW
[2018-03-24] MEDS: NICOTINE 21 MG/24 HR PATCH TD SCH (20:55)
[2018-03-25] MEDS: ACETAMINOPHEN 500 MG TAB PO PRN ×2 (01:04→19:31)
--- NOTE | 2018-03-25 07:12 | NEUSURGPN ---
Assessment/Plan: Assessment: 62 yo F s/p edgard hole and endoscopic removal of colloid cyst on . Pt had some post operative Intracranial bleeding in her right frontal lobe and brainstem Plan: -SBP 100-140 -Keppra 750 BID -repeat CTH decreased in overall blood volume and improved ventriculomegaly with some slight increase in shift, patient improving clinically -EVD clamped and Heparin held for possible removal tomorrow Will repeat HCT tomorrow morning prior to remove ventriculostomy -Avoid narcotics as this has been effecting patient overall mental status. Tramadol and Tylenol available for pain. -continue with neuro checks -PT/OT/LAV CREWMAN -call NS with any changes/concerns Subjective: Headache improved Objective: AO x 3, PERRLA EOMI CN 2-12 grossly intact +lt touch follows commands 5/5 BUE/LLE; right LE amputation incision CDI CSF clear Ventric open at 10mmHg, ICP 1-3 Catheter Insertion Date: 03/18/18 - Physician Discussed Patient with : Billy Neurosurgery Physical Exam - Vitals, I&O, Labs I and O 03/24/18 03/25/18 03/26/18 05:59 05:59 05:59 Intake Total 4555 2370 Output Total 3100 1702 0 Balance 1455 668 0 Weight 68.8 kg Intake: Oral (ml) 2560 2040 IV Infused (ml) 1994 330 DOPamine/DEXTROSE 250 ml 68 @ Titrate IV CONT FRANCINE Rx# :[id number] NS W/ 20 KCl/L 1,000 ml @ 1927 330 100 mls/hr IV CONT FRANCINE Rx#:[id number] Output: Urine (ml) 3100 1700 Bedside Commode 3100 1700 CSF Drainage Amount 0 2 0 Ventriculostomy 1 0 2 0 Other: Number of Voids Bedside Commode 1 1 Number of Stools Bedside Commode 0 Vital Signs Temp Pulse Resp BP Pulse Ox 37 C 56 L 16 105/55 L 93 03/25/18 00:00 03/25/18 06:00 03/25/18 06:00 03/25/18 06:00 03/25/18 06:00 Laboratory Results 03/24/18 04:10 03/24/18 04:10 ICD10 Worksheet Patient Problems: Problems Problem Status Onset Colloid cyst of third ventricle Acute
[2018-03-25] MEDS: traMADol 50 MG TAB PO PRN ×3 (07:57→23:04)
[2018-03-25] MEDS: NICOTINE 21 MG/24 HR PATCH TD SCH (07:59)
[2018-03-25] MEDS: levETIRAcetam 250 MG TAB PO SCH ×2 (08:00→23:04)
[2018-03-25] MEDS: ATORVASTATIN CALCIUM 10 MG TAB PO SCH (08:00)
[2018-03-25] MEDS: FOLIC ACID 1 MG TAB PO SCH (08:00)
[2018-03-25] MEDS: POTASSIUM CL 10 MEQ TAB PO SCH (08:00)
[2018-03-25] MEDS: HEPARIN 5,000 UNIT/0.5 ML INJ SC SCH ×2 (08:02→19:27)
[2018-03-25] MEDS: SENNOSIDES/DOCUSATE SODIUM TAB PO SCH ×2 (08:03→19:28)
--- NOTE | 2018-03-25 08:45 | PDINTPN ---
Metal Stud Framer Progress Note Assessment/Plan: Assessment/plan: * Status post colloid cyst removal. Associated with a small amount of postop intraparenchymal hemorrhage. Headaches improved but do persist. Ventriculostomy in place. On Keppra. Neurologic status is stable. -ventriculostomy tube clamped -followed neurologic status * Somnolence. Markedly improved. Awake and alert. * Hypercoagulable state/anti phospholipid syndrome. History of DVT left lower extremity. On Coumadin prior to admission. On prophylactic subcu heparin. -query when full anticoagulation can begin * Hypotension. Blood pressures borderline low. Was off dopamine but back on this again. Getting IV fluids. * History a right AKA secondary to osteomyelitis. * Metabolic: No issues identified. * Anemia: Last hematocrit 32.7, stable. No evidence of active bleeding. Follow. * VTE prophylaxis. * Stress ulcer prophylaxis * PT/OT-begin ambulation * Nutrition-adequate Overall continues to improve Subjective: Sitting up in chair. Resting comfortably. More alert today. Less somnolence. Objective: Vital Signs Temp Pulse Resp BP Pulse Ox 36.8 C 54 L 13 113/50 L 92 03/25/18 08:00 03/25/18 08:00 03/25/18 08:00 03/25/18 08:00 03/25/18 08:00 Laboratory Results 03/24/18 04:10 03/24/18 04:10 03/24/18 03/25/18 03/26/18 05:59 05:59 05:59 Intake Total 4555 2370 Output Total 3100 1702 400 Balance 1455 668 -400 PT 12.8 SEC (12.0-15.0) 03/18/18 09:30 INR 0.94 (0.83-1.16) 03/18/18 09:30 - Time Spent With Patient Time Spent With Patient: 35 min of time spent with patient, over 1/2 involved with coordination of care counseling. Case discussed with nursing Physical Exam - Physical Exam General Appearance: alert, no apparent distress EENT: PERRL/EOMI, normal ENT inspection Neck: non-tender Respiratory: chest non-tender, lungs clear, normal breath sounds Cardiac/Chest: normal peripheral pulses, regular rate, rhythm Peripheral Pulses: 2+: carotid (R), carotid (L), femoral (R), femoral (L), dorsalis-pedis (R), dorsalis-pedis (L) Abdomen: normal bowel sounds, non-tender, soft Pelvic Exam: deferred Rectal: deferred Skin: normal color, warm/dry Lymphatic: no adenopathy Extremities: normal range of motion, non-tender, normal inspection, normal capillary refill Neuro/Psych: alert, normal mood/affect, oriented x 3 ICD10 Worksheet Patient Problems: Problems Problem Status Onset Colloid cyst of third ventricle Acute
[2018-03-26] MEDS: traMADol 50 MG TAB PO PRN ×3 (05:24→19:02)
[2018-03-26] MEDS ORDERED: LIDOCAINE 1% 300 MG/30 ML SDV ONE (07:36)
--- NOTE | 2018-03-26 08:02 | SOAPPROG ---
SOAP Progress Note Assessment/Plan: Assessment: 62 yo F s/p edgard hole and endoscopic removal of colloid cyst on . Pt had some post operative Intracranial bleeding in her right frontal lobe and brainstem Plan: neuro: stable head CT 03/26/18 shows evolution of ICH with no hydrocephalus EVD removed today ok to restart dvt prophylaxis PT/OT ok to transfer to floor around noon if doing well please call with neuro changes discussed with Dr Cervantes 03/26/18 07:59 Subjective: mild headache, No N/V. Objective: Vital Signs Temp Pulse Resp BP Pulse Ox 36.7 C 54 L 12 119/63 95 03/25/18 12:00 03/26/18 06:00 03/26/18 06:00 03/26/18 06:00 03/26/18 06:00 Laboratory Results 03/24/18 04:10 03/24/18 04:10 03/25/18 03/26/18 03/27/18 05:59 05:59 05:59 Intake Total 2370 1350 Output Total 1702 2000 Balance 668 -650 PT 12.8 SEC (12.0-15.0) 03/18/18 09:30 INR 0.94 (0.83-1.16) 03/18/18 09:30 AAOx4, +FC PERRL, EOMI, no facial droop MATT x 3, right leg amputation + light touch C/D/I ICD10 Worksheet Patient Problems: Problems Problem Status Onset Colloid cyst of third ventricle Acute
--- NOTE | 2018-03-26 09:05 | PDINTPN ---
Tack Coverer Progress Note Assessment/Plan: Assessment/plan: * Status post colloid cyst removal. Associated with a small amount of postop intraparenchymal hemorrhage. Headaches improved but do persist. Ventriculostomy in place. On Keppra. Neurologic status is stable. -ventriculostomy tube out * Somnolence. Markedly improved. Awake and alert. * Hypercoagulable state/anti phospholipid syndrome. History of DVT left lower extremity. On Coumadin prior to admission. On prophylactic subcu heparin. -query when full anticoagulation can begin * Hypotension. Blood pressures borderline low. Was off dopamine but back on this again. Getting IV fluids. * History a right AKA secondary to osteomyelitis. * Metabolic: No issues identified. * Anemia: Last hematocrit 32.7, stable. No evidence of active bleeding. Follow. * VTE prophylaxis. * Stress ulcer prophylaxis * PT/OT-begin ambulation * Nutrition-adequate Overall continues to improve Subjective: Working with physical therapy. Awake and alert. Comfortable. Objective: Vital Signs Temp Pulse Resp BP Pulse Ox 36.7 C 54 L 12 119/63 95 03/25/18 12:00 03/26/18 06:00 03/26/18 06:00 03/26/18 06:00 03/26/18 06:00 Laboratory Results 03/24/18 04:10 03/24/18 04:10 03/25/18 03/26/18 03/27/18 05:59 05:59 05:59 Intake Total 2370 1350 Output Total 1702 2000 Balance 668 -650 PT 12.8 SEC (12.0-15.0) 03/18/18 09:30 INR 0.94 (0.83-1.16) 03/18/18 09:30 - Time Spent With Patient Time Spent With Patient: 35 min of time spent with patient, over 1/2 involved with coordination of care or counseling Case discussed with nursing Physical Exam - Physical Exam General Appearance: alert, no apparent distress EENT: PERRL/EOMI Neck: non-tender, full range of motion Respiratory: chest non-tender, lungs clear Cardiac/Chest: normal peripheral pulses, regular rate, rhythm Peripheral Pulses: 2+: carotid (R), carotid (L), femoral (R), femoral (L), dorsalis-pedis (R), dorsalis-pedis (L) Abdomen: normal bowel sounds, non-tender, soft Pelvic Exam: deferred Rectal: deferred Skin: normal color, warm/dry Extremities: other (Right AKA) Neuro/Psych: alert, normal mood/affect, oriented x 3 ICD10 Worksheet Patient Problems: Problems Problem Status Onset Colloid cyst of third ventricle Acute
[2018-03-26] MEDS: HYDROCHLOROTHIAZIDE 12.5 MG CAP PO SCH (09:20)
[2018-03-26] MEDS: POTASSIUM CL 10 MEQ TAB PO SCH (09:21)
[2018-03-26] MEDS: ATORVASTATIN CALCIUM 10 MG TAB PO SCH (09:21)
[2018-03-26] MEDS: NICOTINE 21 MG/24 HR PATCH TD SCH (09:21)
[2018-03-26] MEDS: FOLIC ACID 1 MG TAB PO SCH (09:21)
[2018-03-26] MEDS: HEPARIN 5,000 UNIT/0.5 ML INJ SC SCH ×2 (09:21→21:48)
[2018-03-26] MEDS: SENNOSIDES/DOCUSATE SODIUM TAB PO SCH ×2 (09:23→21:47)
[2018-03-26] MEDS: levETIRAcetam 250 MG TAB PO SCH ×2 (09:24→21:47)
--- NOTE | 2018-03-26 09:36 | GOP ---
DATE OF OPERATION: 03/18/2018 SURGEON: Leroy Cervantes MD NEUROSURGEON: Leroy Cervantes MD. GLASS CUTTER HAND: Wesley Garcia PA-C. ANESTHESIA: GETA. PREOPERATIVE DIAGNOSIS: Colloid cyst. POSTOPERATIVE DIAGNOSIS: Colloid cyst. PROCEDURE PERFORMED: Right frontal bur hole for endoscopic resection of colloid cyst and use of [facility] neuronavigation. FINDINGS: Cyst fenestrated and cyst remnants removed and EVD placement. SPECIMENS: Removed, none. ESTIMATED BLOOD LOSS: Less than 50 cc. INDICATIONS: The patient is a 62-year-old female who has had very concerning headache patterns that are new for her. She describes headaches that come on suddenly and increase in intensity and then di ssipate, but she has been left with a period of bogginess in terms of her mental cognition for a zak od of time. She does have scans that show a hyperdense lesion on computed tomography that appear to block bilateral foramina of Monro with enlarged ventricles for her age. She is unable to get a MRI d ue to prior surgeries. Given her description of symptoms and radiographic findings we did find it ad visable to try to resect this mass to prevent serious complications from hydrocephalus in the future. Risks, benefits, alternatives were discussed and she signed informed consent prior to the procedure DESCRIPTION OF PROCEDURE: The patient was brought to the operating room and a sign-in was performed. She was given appropriate IV antibiotics to prevent infection. She was induced under general anest hesia without difficulty and intubated. Appropriate IV access was obtained. Her head was placed in a three-point [place] wet process assistant head miller in a supine and neutral position with the head of bed slightly upw ards. Navigational arm was connected to the [place] and her scan was registered and verified for ac curacy. A small incision over Yamilka's point was planned on the right side measuring approximately 2 cm in length in the sagittal plane. A small amount of hair was shaved and her scalp was cleansed wi th chlorhexidine shampoo and rubbing alcohol and incision was retraced and ChloraPrep was used to lalo rilize the field. Sterile field was created with blue towels, Ioban and sterile surgical drape. Susan or to the procedure, a time-out was performed in which all members of surgery, nursing and anesthesia went over the necessary checklist items and agreed to proceed. 5 cc of local mixture was used to in ject the scalp and then a #10 scalpel was used to incise the skin down to the skull itself. Perioste um was swept away. A small self-retaining retractor was placed. Bur hole was made with a perforatin g drill bit at Yamilka's point, and once this was completed, the remaining disk of bone was removed with the mosquito and the dura was coagulated with bipolar electrocautery. The dura was ope slime in a cruciate fashion with a #11 scalpel. The dural leaflets were cauterized with bipolar electr ocautery. At no point in time was the vasculature or the brain tissue injured. We performed a corti cectomy over a sulcus in the center of the field and then we advanced a smooth peel-away sheath into the right frontal lateral ventricle and stapled it to the operative field to keep our posi tion. We advanced our endoscope down the channel into the ventricle and we found to have very good v isualization. There was some bleeding in the ventricle and we washed this away with copious normal s loyd solution until we had very good visualization. I could clearly see the choroid plexus exiting from the foramina of Monro. I advanced my rigid scope into the foramen and I immediately found of the colloid cyst. I then fenestrated it and using graspers that reached down through the wo rking channels of the scope I was able to remove the outer sac of the cyst itself. There was very li ttle tissue to send for pathology, so this was not done. There were no specimens sent. I was able t o pass my scope down to the 3rd ventricle, and I could see the floor of it. vital structu res which were in good condition. I continued to look around and could see that the foramina of Monr o appeared to be widely patent. I could see CSF pulsating through the foramina of Monro. At this po int in time I verified everything with navigation to ensure that we had removed the lesion. We alida nued to irrigate until all the blood was washed out from the ventricles. We then removed the rigid s cope and placed an EVD catheter down the peel-away sheath and then removed the sheath with the cathet er in good position. We tunneled the catheter out of the scalp and hooked it up to a EVD collecting system. We tamponade the bur hole with thrombin-soaked Gelfoam and there was no bleeding. We irriga shayna out the wound with copious antibiotic solution and closed it with 2-0 Vicryl suture. We secured the EVD at the site with a nylon stitch and it was draining quite well. We closed the scalp and then dressed the wounds well. We removed the drapes and returned the patient to the anesthesiologist, sara ere she was reversed from anesthesia and extubated without difficulty. All counts were correct. I w as there for the entirety of the procedure. There were no immediate surgical anesthetic complication s. The patient was taken to the ICU directly CT scan, where she was found to have a tract hemorrhage, presumably from placement of the peel-away sheath. She initially had some left upper ex tremity weakness that quickly resolved the same day. She will be monitored in the ICU with her EVD o pen at 5 cm of water and a head CT will be performed tomorrow. Her closest companions were updated r egarding the details of the procedure and were grateful with the care she received. IMPLANTS: Titanium bur hole cover with 4 mm titanium screws. COMPLICATIONS: None. /[id number]/MODL
[2018-03-26] MEDS: ACETAMINOPHEN 500 MG TAB PO PRN (17:40)
[2018-03-27] MEDS: ACETAMINOPHEN 500 MG TAB PO PRN (00:11)
[2018-03-27] MEDS: traMADol 50 MG TAB PO PRN ×2 (01:07→12:17)
[2018-03-27 07:53] VITALS: BP 102/55
--- NOTE | 2018-03-27 08:27 | NEUSURGPN ---
Date of Surgery: 03/18/18 Post Op Day: 9 Assessment/Plan: Assessment: 62 yo F s/p edgard hole and endoscopic removal of colloid cyst on . Pt had some post operative Intracranial bleeding in her right frontal lobe and brainstem Plan: -SBP 100-140 -Keppra 750 BID -repeat CTH decreased in overall blood volume and improved ventriculomegaly with some slight increase in shift, patient improving clinically -EVD removed yesterday, patient remains neurologically stable -Avoid narcotics as this has been effecting patient overall mental status. Tramadol and Tylenol available for pain. -continue with neuro checks -PT/OT/DIP PAINTER -Ok to discharge to rehab today -Patient discussed with Dr Cervantes -call NS with any changes/concerns Subjective: sitting on edge of bed, denies any needs Objective: AO x 3, PERRLA EOMI CN 2-12 grossly intact +lt touch follows commands 5/5 BUE/LLE; right LE amputation incision CDI Neuro Check Frequency: per routine Urinary Catheter in Place: No Catheter Insertion Date: 03/18/18 - Physician Discussed Patient with : Billy Neurosurgery Physical Exam - Vitals, I&O, Labs I and O 03/26/18 03/27/18 03/28/18 05:59 05:59 05:59 Intake Total 1350 400 Output Total 1999 1550 1000 Balance -650 -1150 -1000 Weight 69.6 kg Intake: Oral (ml) 1350 400 Output: Urine (ml) 2000 1550 1000 Bedside Commode 2000 1550 1000 CSF Drainage Amount 0 Ventriculostomy 1 0 Other: Intake Quantity Yes Yes Sufficient Number of Voids Bedside Commode 2 1 Number of Stools Bedside Commode 0 Vital Signs Temp Pulse Resp BP Pulse Ox 36.7 C 68 16 102/55 L 96 03/27/18 07:52 03/27/18 07:54 03/27/18 07:52 03/27/18 07:52 03/27/18 07:52 Laboratory Results 03/24/18 04:10 03/24/18 04:10 ICD10 Worksheet Patient Problems: Problems Problem Status Onset Colloid cyst of third ventricle Acute
--- NOTE | 2018-03-27 08:34 | PDIAF ---
- Diagnosis Diagnosis: s/p colloid cyst resection 03/18/18 Code Status: Full Code - Medication Management Discharge Medications: electronically signed and located in the Home Medication List. - Orders Services needed: Registered Nurse, Certified Inclusion Special Educator, Physical Therapy, Occupational Therapy, Speech Language Pathologist Diet Recommendation: no restrictions on diet Diet Texture: Regular Texture Diet, Thin Liquids, Meds Whole w/Liquids Date to Remove Sutures/[place]: 04/05/18 Activity/Weight Bearing Restrictions: Do not lift greater than 15-20 pounds Additional Instructions: Ok to shower daily and wash hair with baby shampoo Avoid lifting greater than 15-20 pounds Please call office with questions/concerns [phone] - Follow Up Care Current Providers and Referrals: Wil Jacobson [Primary Care Provider] - Robbi Lopez MD [Medical Doctor] - follow up in 2 weeks
[2018-03-27] MEDS: ATORVASTATIN CALCIUM 10 MG TAB PO SCH (10:06)
[2018-03-27] MEDS: HYDROCHLOROTHIAZIDE 12.5 MG CAP PO SCH (10:06)
[2018-03-27] MEDS: POTASSIUM CL 10 MEQ TAB PO SCH (10:06)
[2018-03-27] MEDS: levETIRAcetam 250 MG TAB PO SCH (10:06)
[2018-03-27] MEDS: FOLIC ACID 1 MG TAB PO SCH (10:06)
[2018-03-27] MEDS: NICOTINE 21 MG/24 HR PATCH TD SCH (10:07)
[2018-03-27] MEDS: SENNOSIDES/DOCUSATE SODIUM TAB PO SCH (10:08)
[2018-03-27] MEDS: HEPARIN 5,000 UNIT/0.5 ML INJ SC SCH (10:08)
--- NOTE | 2018-03-27 12:39 | ASMTDCNOTE ---
Case Management Discharge Discharge Order Complete? Answers: Yes Patient to Obtain Answers: Other Notes: [facility] Reh Medications Transportation Arranged Answers: [facility] Stretcher Transport will Pick (Date 03/27/2018 12:00 AM & Time) Case Management Transport Answers: Yes Notes: [facility] for [facility] Form Complete Faxed Final Orders Answers: Yes Notes: [facility] Agency/Facility Transfer Answers: Yes Notes: [facility] Report Printed & Faxed to Receiving Agency Family Notified Answers: Yes Notes: friend, Loren Discharge Comments Notes: Patient is discharging to [facility] in [place] today. Discharge summaries and final notes have been Allscripted to [facility]. Patient will go by [facility] stretcher due to safety concerns. it support analyst time is 1:30 PM. Patient's friend Loren is aware she is being transferred today. No further needs. Date Signed: 03/27/2018 12:38 PM Electronically Signed By:Tammy Barrow LCSW
--- NOTE | 2018-03-27 12:41 | ASDISCHSUM ---
Discharge Information Plan Status:Inpatient Rehab Medically Cleared to Leave:03/26/2018 Discharge Date:03/26/2018 CM D/C Disposition:Other Rehab, Not [facility] ADT D/C Disposition:Other Rehab, Not [facility] Projected Discharge Date:03/27/2018 11:00 AM Transportation at D/C:Other Discharge Delay Reason: Follow-Up Date:03/27/2018 11:00 AM Discharge Slot:2 - 12:01 pm - 18:00 pm Final Diagnosis:Endoscopic removal of colloid cyst Placement Information Referral Type:Rehabilitation Hospital Referral ID:[id number] Provider Name:[facility] Address 1:[address] Address 2: City:[place] Selection Factors: State:[place] Patient Contact Information Contact Name:LUNA Relationship:Friend Address:[facility] [employer] Work Phone: City:[place] [facility] Alternate Phone: State/Zip Code:[place] [address] Email: Financial Information Financial Class:Medicare Primary Plan Desc:MEDICARE INPATIENT Primary Plan Number:[id number] Secondary Plan Desc:[facility] Secondary Plan Number:[id number] Assessment Information LACE LACE Length of stay for Answers: 7-13 days current admission Acuity / Level of Answers: Yes Care: Did the patient have an inpatient admission? Comorbidities - select Answers: Cerebrovascular disease all that apply (CVA, TIA, aneurysms, vasc ular dementia) Opioid dependence / Chronic pain Other Notes: HTN # of Emergency department Answers: 0 visits in the last 6 months Score: 14 Date Signed: 03/27/2018 12:39 PM Electronically Signed By:Tammy Barrow LCSW [facility] Initial CM Assessment Living Arrangements What is your living Answers: Alone arrangement? Who do you live with? Type Of Residence What kind of residence do Answers: House you live in? Discharge Plan Comments Coordination Status Comments Notes: Patient is a 62yo female who was admitted for endoscopic removal of colloid cyst. Patient has some post operative intracranial bleeding in her right frontal lobe and brainstem. PT/OT/TAPE RECORDING MACHINE OPERATOR have been ordered. Communication Specialist recommending inpatient rehab. Awaiting therapies evaluations.D/C plan TBD. CM will follow. Date Signed: 03/19/2018 11:28 AM Electronically Signed By:Tammy Barrow LCSW [facility] CM Progress Note CM Note CM Note Notes: Patient was confused this AM. Her friend Loren has been at her bedside. Patient was requiring 2 person max assist today. Inpatient rehab consult was requested. D/C plan TBD.CM will follow. Date Signed: 03/21/2018 04:28 PM Electronically Signed By:Tammy Barrow LCSW [facility] CM Progress Note CM Note CM Note Notes: Pts case discussed in tx rounds. Pt would like a referral sent to [facility] for their inpatient rehab. Pt has been in the past and had a good experience. Referral sent. CM to follow. Plan: Inpatient Rehab Date Signed: 03/22/2018 02:43 PM Electronically Signed By:ARISTIDES Martinez [facility] CM Progress Note CM Note CM Note Notes: Updated referral notes to [facility]. Date Signed: 03/24/2018 04:45 PM Electronically Signed By:Jackie Martinez LCSW Case Management Discharge Plan Note Case Management Discharge Discharge Order Complete? Answers: Yes Patient to Obtain Answers: Other Notes: [facility] Medications Transportation Arranged Answers: [facility] Transport will Pick (Date 03/27/2018 12:00 AM & Time) Case Management Transport Answers: Yes Notes: [facility]CS for [facility] Form Complete Faxed Final Orders Answers: Yes Notes: [facility] Agency/Facility Transfer Answers: Yes Notes: [facility] Report Printed & Faxed to Receiving Agency Family Notified Answers: Yes Notes: friend, Loren Discharge Comments Notes: Patient is discharging to [facility] in [place] today. Discharge summaries and final notes have been Allscripted to [facility]. Patient will go by [facility] due to safety concerns. office support associate time is 1:30 PM. Patient's friend Loren is aware she is being transferred today. No further needs. Date Signed: 03/27/2018 12:38 PM Electronically Signed By:Tammy Barrow LCSW Intervention Information Intervention Type:*IM-Signed Date of Service:03/27/2018 11:51 AM Patient Type:Inpatient Staff Member:Maty Lucero Hours: Discipline: Severity: Comment:
[2018-03-27] MEDS ORDERED: WARFARIN SODIUM 2.5 MG TAB PO SCH (16:00)
[2018-03-27] MEDS ORDERED: WARFARIN SODIUM 2 MG TAB PO SCH (16:00)
[2018-03-28] MEDS ORDERED: ENOXAPARIN 60 MG/0.6 ML SYR SC SCH (09:00)
--- NOTE | 2018-04-01 10:09 | GDS ---
ADMISSION DIAGNOSIS: Colloid cyst. DISCHARGE DIAGNOSIS: Colloid cyst. She was followed by Critical Care Service while admitted to the ICU. PROCEDURES: Edgard hole craniotomy and endoscopic removal of colloid cyst. HOSPITAL COURSE: Patient was admitted postoperatively after an elective edgard hole craniotomy and end oscopic removal of colloid cyst resulting in multiple symptoms described in her HPI. Postoperatively scan showed some postoperative and intracranial bleeding in the right frontal lobe and in the brains tem. Patient did have some minor left-sided weakness immediately postoperatively, which rapidly impr renetta. She was treated in the ICU with an EVD for 8 days, standard postoperative management for resec tion of the colloid cyst. She improved clinically. Blood pressure was controlled. She was placed o n antiepileptics. She was seen by PT, OT, [facility] and was deemed safe for discharge on 03/27, where she was transferred to a rehab facility. MEDICATIONS: Please see discharge plan for home medications. DISCHARGE INSTRUCTIONS: Please see discharge instructions for discharge. Patient will follow up in [address] Cervantes for postoperative wound check. /[id number]/MODL
== END 2018-03-27 13:04 | DRG 26 ==
LOC: F3N 08:33 → F2N 14:44
PROVIDERS: ADMIT Neurological Surgery; ATTEND Neurological Surgery
PROC: 00B00ZZ Excision of Brain, Open Approach (ICD-10-PCS; principal; 2018-03-18 11:00)
PROC: 02HV33Z Insertion of Infusion Device into Superior Vena Cava, Percutaneous Approach (ICD-10-PCS; 2018-03-19)
DX: Q04.6 Congenital cerebral cysts (principal); D68.61 Antiphospholipid syndrome; G97.51 Postprocedural hemorrhage of a nervous system organ or structure following a nervous system procedure; I95.81 Postprocedural hypotension; I10 Essential (primary) hypertension; Z79.01 Long term (current) use of anticoagulants; Z89.611 Acquired absence of right leg above knee; Z96.642 Presence of left artificial hip joint; Z90.710 Acquired absence of both cervix and uterus; Z86.73 Personal history of transient ischemic attack (TIA), and cerebral infarction without residual deficits; Z72.0 Tobacco use
CPT/HCPCS: 92507-GN; 92523-GN; 92526-GN; 92610-GN; 97110-GP; 97112-GO; 97116-GP; 97162-GP; 97166-GO; 97530-GO; 97530-GP; 97535-GO; C1713; C1729; C1751; C1894; G8978-GP-CK; G8979-GP-CI; G8987-GO-CL; G8988-GO-CI; G8996-GN-CI; G8997-GN-CI; G9168-GN-CJ; G9169-GN-CI; J0360; J0690; J1100; J1265; J1580; J1644; J1953; J2250; J2405; J2704; J3010; P9041; Q9967